=== PATIENT | female | born 1975 | race Caucasian/White ===

== ENCOUNTER → 2017-12-17 | Outpatient (CLI) | payer BC ==
[2017-12-17 10:42] VITALS: BP 163/94; PULSE 69; RESP 15; TEMP 98.3; BMI 46.2
[2017-12-17 11:21] LABS: HCT 36.4 % (34.0-46.0); HGB 11.5 gm/dL (11.4-16.0); Hypochromasia Slight; MCH 25.7 pg (25.0-35.0); MCHC 31.7 g/dL (31.0-37.0); MCV 81.2 fL (80.0-100.0); Mean Platelet Volume 6.7; Platelet Count 268 k/uL (150-450); RBC 4.48 m/uL (3.80-5.40); RDW 15.2 % (11.5-15.5); WBC 5.9 k/uL (3.8-10.6)
[2017-12-17 11:38] LABS: ALT 32 U/L (9-52); AST 15 U/L (14-36); Albumin 3.7 g/dL (3.5-5.0); Alkaline Phosphatase 58 U/L (38-126); Anion Gap 9 mmol/L; Blood Urea Nitrogen 7 mg/dL (7-17); Calcium 8.5 mg/dL (8.4-10.2); Carbon Dioxide 26 mmol/L (22-30); Chloride 104 mmol/L (98-107); Cholesterol 172 mg/dL (<200); Glucose 85 mg/dL (74-99); HDL Cholesterol 47 mg/dL (40-60); LDL Cholesterol,Calculated 94 mg/dL (0-99); Magnesium 1.8 mg/dL (1.6-2.3); Phosphorus 3.3 mg/dL (2.5-4.5); Potassium 3.8 mmol/L (3.5-5.1); Sodium 139 mmol/L (137-145); Total Bilirubin 0.2 mg/dL (0.2-1.3); Total Protein 6.3 g/dL (6.3-8.2); Triglycerides 155 mg/dL (<150)
[2017-12-17 12:09] LABS: Partial Thromboplastin Time 24.1 sec (22.0-30.0); Prothrombin Time 9.8 sec (9.0-12.0)
[2017-12-17 15:53] LABS: Iron Saturation 9.28 (12.00-45.00)
[2017-12-17 16:25] LABS: Folate, Serum 11.8 ng/mL; Parathyroid Hormone Intact 46.9 pg/mL (14.0-72.0)
[2017-12-17 17:32] LABS: Hemoglobin A1C 5.8 % (4.0-6.0)
[2017-12-18 10:56] LABS: Zinc, Serum 67 ug/dL (60-130)
[2017-12-18 16:20] LABS: Vitamin A 26 ug/dL (38-106)
[2017-12-22 08:52] LABS: Vitamin B1 54 ug/L (38-122)
[2017-12-22 15:35] LABS: Selenium 131 mcg/L (63-160)
--- NOTE | 2018-01-16 20:43 | P.HPBAR ---
Bariatric H&P - History & Physicial H&P Date: 12/17/17 History & Physicial: Visit/CC: Patient initial contact: Initial weight: Initial weight in pounds: Height: Initial BMI: Last weight: Current weight: Current weight in pounds: Current BMI: [place] body weight (based on NIH guidelines): Excess body weight loss: The patient is a 42 year-old F who presents for Bariatric Assessment. DATE OF SERVICE: 12/17/2017 REASON FOR CONSULTATION: Initial bariatric evaluation. HISTORY OF PRESENT ILLNESS: Geovanna Gillespie is a 42-year-old female who comes for initial bariatric evaluation. She reports undergoing at least several months of medical supervised weight loss. She has completed both psych including primary care provider risk assessment. As a result of her morbid obesity, she has developed hypertension including lower back pain as well as bilateral hip and bilateral knee pain. She reports the right knee hurts the worst. She also reports bilateral foot pain. Separately, she has obstructive sleep apnea and has CPAP machine. She reports a family history of obesity along her father's side. No reports of inflammatory bowel disease or lupus or multiple sclerosis. She denies stomach or esophageal cancer. No reports of latex ALLERGY. She is looking into the sleeve gastrectomy. She reports underlying dysphagia. Now she presents for further evaluation and management. At her height of 5 foot 1-1/4 inch, her ideal body weight is 131 pounds. Today she comes in weighing 247 pounds. She is 116 pounds overweight. Body mass index is 46.2. PAST MEDICAL HISTORY: 1. Morbid obesity. 2. Body mass index of 46.2. 3. Osteoarthritis of the knees. 4. Osteoarthritis of the hips. 5. Osteoarthritis of the lower back. 6. Obstructive sleep apnea. 7. Hypertensive heart disease. 8. Hypothyroidism. 9. Gestational diabetes PAST SURGICAL HISTORY: 1. Adenoidectomy 2. Tonsillectomy 3. Thyroidectomy 4. 2 HOME MEDICATIONS: 1. Levothyroxine ALLERGIES: Morphine SOCIAL HISTORY: No active tobacco use. Former tobacco use. FAMILY HISTORY: No family history of ulcerative colitis disease or Crohn's disease. Family history of morbid obesity. No lupus in the family. No reports of stomach or esophageal cancer. REVIEW OF ORGAN SYSTEMS: CONSTITUTIONAL: At her height of 5 foot 1-1/4 inch, her ideal body weight is 131 pounds. Today she comes in weighing 247 pounds. She is 116 pounds overweight. Body mass index is 46.2. HEENT: Denies any active troubles with vision or hearing. Has troubles with swallowing. ENDOCRINE: Past diabetes. Has hypothyroidism. CARDIOVASCULAR: No reports of palpitations or heart attacks or chest pain. RESPIRATORY: Has daytime somnolence. No asthma. Has obstructive sleep apnea. GI: Denies any bright red blood per rectum. No diarrhea or constipation. MUSCULOSKELETAL: Has lower back pain and joint pain. Has osteoarthritis of the knees. NEURO: No headaches. No seizure disorders. PSYCH: No depression or suicidal ideation. RHEUMATOLOGIC: No lupus. No rheumatoid arthritis. HEMATOLOGIC: Denies any abnormal bleeding or bruising. No personal history of DVTs. SKIN: No rash. No skin cancer. PHYSICAL EXAM: VITAL SIGNS: Height 5 foot 1.25 inches, weight 247 pounds. BMI 46.2 Vital Signs Temp 98.3 F 12/17/17 09:43 Pulse 69 12/17/17 09:43 Resp 15 12/17/17 09:43 BP 163/94 12/17/17 09:43 Pulse Ox GENERAL: Well-developed in no acute distress. HEENT: No scleral icterus. Extraocular movements grossly intact. Hears conversational speech. No nasal drainage. NECK: Supple without lymphadenopathy. CHEST: Nonlabored respirations with equal bilateral excursions. CARDIOVASCULAR: Regular rate and regular rhythm. Distal 2+ pulses. ABDOMEN: Obese, soft, nontender, nondistended. MUSCULOSKELETAL: No clubbing, cyanosis. Gross strength 5/5 distal lower extremities. Trace bilateral pitting edema. NEURO: No focal or lateralizing signs. Cranial nerves 2 through 12 grossly within normal limits. PSYCH: Appropriate affect. Alert and oriented to person, place and time. SKIN: Good skin turgor. Well perfused. STUDIES: Previous upper endoscopy demonstrates no significant hiatal hernia. No H. pylori gastritis identified. ASSESSMENT: 1. Morbid obesity due to excess calories. 2. Body mass index of 46.2. 3. Osteoarthritis of the knees. 4. Osteoarthritis of the hips. 5. Osteoarthritis of the lower back. 6. Obstructive sleep apnea. 7. Hypertensive heart disease. 8. Hypothyroidism 9. Family history of morbid obesity 10. Gestational diabetes 11. Dysphagia PLAN: 1. Surgical options including a band, gastric bypass, sleeve gastrectomy were described in detail. Alternatives such as gastric balloon including duodenal switch were described. 2. The [place] [facility]ariat[facility] collaborative data and outcomes calculator were described with surgical options. 3. Recommend a bariatric metabolic panel to evaluate for micro- including macronutrient deficiencies. 4. For history of daytime somnolence, recommend evaluation and treatment for sleep apnea. 5. Dietary surveillance and counseling was reviewed, I have asked increased protein intake to at least 80 grams daily. 6. Will need cardiac risk assessment. 7. Recommend medical risk assessment. 8. Psych assessment per insurance guidelines. 9. Recommend manometry for history of esophageal dysphagia 10. Recommend 12-lead EKG with family history of hypertensive heart disease. Thank you for this consultation. Past Medical History Past Medical History: Sleep Apnea/CPAP/BIPAP, Thyroid Disorder Additional Past Medical History / Comment(s): hypothyroidism, bilateral knee and hip pain, History of Any Multi-Drug Resistant Organisms: None Reported Past Surgical History: Adenoidectomy, Tonsillectomy Additional Past Surgical History / Comment(s): thyroidectomy 2013, x2 , borderline hypertension, borderine gestational DM Past Anesthesia/Blood Transfusion Reactions: No Reported Reaction Additional Past Anesthesia/Blood Transfusion Reaction / Comm: NO transfusions to date Smoking Status: Former smoker Past Alcohol Use History: Rare Past Drug Use History: None Reported Additional Drug Use History / Comment(s): Smoked 1/2 pack/day x 18 years. Quit smoking 03-25-13 - Past Family History Father Family Medical History: Cancer, Diabetes Mellitus Additional Family Medical History / Comment(s): at age 75 from lung cancer, Type 2 DM Mother Family Medical History: Dementia, Diabetes Mellitus Additional Family Medical History / Comment(s): type 2 DM, "mental issues when younger" alcoholic Sister(s) Family Medical History: Diabetes Mellitus Additional Family Medical History / Comment(s): Type 2 DM "pretty much resolved " with bariatric surgery Results - Labs 12/17/17 10:56 12/17/17 10:56 Bariatric Checklist Checklist: Plan: Checklist: EGD: 1. Hiatal hernia: 2. H. Pylori: HgbA1c: Vitamin D: Smoking: Former smoker Primary care physician referral: Psychiatry clearance: Cardiology clearance: Sleep study: Diet journal: VTE risk score: VTE risk level: Rehab needs at discharge:
== END | disposition home or self-care (01) ==
LOC: BARWHC3 09:36
PROVIDERS: ATTEND Surgery Plastic and Reconstructive Surgery
DX: E66.01 Morbid (severe) obesity due to excess calories (principal); M17.0 Bilateral primary osteoarthritis of knee; M16.0 Bilateral primary osteoarthritis of hip; M47.816 Spondylosis without myelopathy or radiculopathy, lumbar region; E11.9 Type 2 diabetes mellitus without complications; I11.9 Hypertensive heart disease without heart failure; E03.9 Hypothyroidism, unspecified; G47.33 Obstructive sleep apnea (adult) (pediatric); E21.1 Secondary hyperparathyroidism, not elsewhere classified; E89.1 Postprocedural hypoinsulinemia; D50.9 Iron deficiency anemia, unspecified; E55.9 Vitamin D deficiency, unspecified; K76.9 Liver disease, unspecified; N19 Unspecified kidney failure; K50.90 Crohn's disease, unspecified, without complications; K90.9 Intestinal malabsorption, unspecified; Z79.899 Other long term (current) drug therapy; Z88.5 Allergy status to narcotic agent; Z68.42 Body mass index [BMI] 45.0-49.9, adult; Z87.891 Personal history of nicotine dependence
CPT/HCPCS: 36415; 80053; 80061; 82306; 82525; 82607; 82728; 82746; 83036; 83540; 83550; 83735; 83970; 84100; 84134; 84255; 84425; 84443; 84590; 84630; 85027; 85610; 85730; 93005; 99201

== ENCOUNTER → 2018-01-11 | Outpatient (CLI) | payer BC ==
[2018-01-11 13:14] VITALS: BMI 46.6
== END | disposition home or self-care (01) ==
LOC: BARWHC3 08:31
PROVIDERS: ATTEND Surgery Plastic and Reconstructive Surgery
DX: E66.01 Morbid (severe) obesity due to excess calories (principal); Z71.3 Dietary counseling and surveillance
CPT/HCPCS: 97804

== ENCOUNTER → 2018-01-28 | Outpatient (CLI) | payer BC ==
[2018-01-28 14:00] VITALS: BP 145/85; PULSE 75; TEMP 97.2; BMI 47.5
--- NOTE | 2018-03-05 14:18 | P.PN ---
Subjective Progress Note Date: 01/28/18 DATE OF SERVICE: 01/28/2018 CHIEF COMPLAINT: Bariatric evaluation. HISTORY OF PRESENT ILLNESS: Geovanna Gillespie is a 42-year-old female who presents to the [facility] December 2017. She had reported dysphagia. She is look into the sleeve gastrectomy. As a result of her obesity, she developed osteoarthritis, sleep apnea as well as hypertensive heart disease. Now she presents for further evaluation and management. At her height of 5 foot 1-1/4 inch, her ideal body weight is 131 pounds. Today she comes in weighing 254 pounds. She has gained 7 pounds in 1 month. She is 123 pounds overweight. Body mass index is 47.8. PAST MEDICAL HISTORY: 1. Morbid obesity. 2. Body mass index of 47.8 3. Osteoarthritis of the knees. 4. Osteoarthritis of the hips. 5. Osteoarthritis of the lower back. 6. Obstructive sleep apnea. 7. Hypertensive heart disease. 8. Hypothyroidism. 9. Gestational diabetes PAST SURGICAL HISTORY: 1. Adenoidectomy 2. Tonsillectomy 3. Thyroidectomy 4. 2 HOME MEDICATIONS: 1. Levothyroxine ALLERGIES: Morphine SOCIAL HISTORY: No active tobacco use. Former tobacco use. FAMILY HISTORY: No family history of ulcerative colitis disease or Crohn's disease. Family history of morbid obesity. No lupus in the family. No reports of stomach or esophageal cancer. REVIEW OF ORGAN SYSTEMS: CONSTITUTIONAL: At her height of 5 foot 1-1/4 inch, her ideal body weight is 131 pounds. Today she comes in weighing 254 pounds. She has gained 7 pounds in 1 month. She is 123 pounds overweight. Body mass index is 47.8. HEENT: Denies any active troubles with vision or hearing. Has troubles with swallowing. ENDOCRINE: Past diabetes. Has hypothyroidism. CARDIOVASCULAR: No reports of palpitations or heart attacks or chest pain. RESPIRATORY: Has daytime somnolence. No asthma. Has obstructive sleep apnea. GI: Denies any bright red blood per rectum. No diarrhea or constipation. MUSCULOSKELETAL: Has lower back pain and joint pain. Has osteoarthritis of the knees. NEURO: No headaches. No seizure disorders. PSYCH: No depression or suicidal ideation. RHEUMATOLOGIC: No lupus. No rheumatoid arthritis. HEMATOLOGIC: Denies any abnormal bleeding or bruising. No personal history of DVTs. SKIN: No rash. No skin cancer. PHYSICAL EXAM: VITAL SIGNS: Height 5 foot 1.25 inches, weight 254 pounds. BMI 47.7. Vital Signs Temp 97.2 F L 01/28/18 13:58 Pulse 75 01/28/18 13:58 Resp BP 145/85 01/28/18 13:58 Pulse Ox GENERAL: Well-developed in no acute distress. HEENT: No scleral icterus. Extraocular movements grossly intact. Hears conversational speech. No nasal drainage. NECK: Supple without lymphadenopathy. CHEST: Nonlabored respirations with equal bilateral excursions. CARDIOVASCULAR: Regular rate and regular rhythm. Distal 2+ pulses. ABDOMEN: Obese, soft, nontender, nondistended. MUSCULOSKELETAL: No clubbing, cyanosis. Gross strength 5/5 distal lower extremities. 1+ bilateral pitting edema. NEURO: No focal or lateralizing signs. Cranial nerves 2 through 12 grossly within normal limits. PSYCH: Appropriate affect. Alert and oriented to person, place and time. SKIN: Good skin turgor. Well perfused. LABS: Labs reviewed. Iron is low. Prealbumin is low. Triglycerides elevated. Ferritin low. Vitamin A low. Vitamin D low. TSH suppressed STUDIES: Manometry reviewed demonstrating hypertensive upper esophageal sphincter. Hiatal hernia confirmed with multiple high pressure zones. Lower esophageal sphincter pressure elevated. No esophageal dysmotility identified. EKG: Reviewed normal sinus rhythm. ASSESSMENT: 1. Morbid obesity due to excess calories. 2. Body mass index of 47.8 3. Osteoarthritis of the knees. 4. Osteoarthritis of the hips. 5. Osteoarthritis of the lower back. 6. Obstructive sleep apnea. 7. Hypertensive heart disease. 8. Hypothyroidism 9. Family history of morbid obesity 10. Gestational diabetes 11. Dysphagia 12. Hypertensive lower esophageal sphincter 13. Hypertensive upper esophageal sphincter 14. Iron anemia 15. Inadequate protein intake 16. Hypertriglyceridemia 17. Vitamin D deficiency 18. Vitamin A deficiency 19. Suppressed TSH PLAN: 1. Recommend upper endoscopy for further evaluation 2. She completed a manometry with findings of both upper and lower esophageal sphincter disorder. May benefit from rigid dilation. 3. She has multiple nutritional deficiencies. Recommend correction of iron, vitamin A, and vitamin D. 4. TSH is suppressed. Will need full thyroid panel. 5. Recommend protein intake over 75 g daily. 6. May need alternative procedure than the sleeve gastrectomy with her multiple sphincter disorders of the esophagus. Objective - Vital Signs Vital signs: Vital Signs Temp 97.2 F L 01/28/18 13:58 Pulse 75 01/28/18 13:58 Resp BP 145/85 01/28/18 13:58 Pulse Ox Intake & Output 01/27/18 01/28/18 01/28/18 18:59 06:59 18:59 Weight 115.621 kg
== END | disposition home or self-care (01) ==
LOC: BARWHC3 12:22
PROVIDERS: ATTEND Surgery Plastic and Reconstructive Surgery
DX: E66.01 Morbid (severe) obesity due to excess calories (principal); O24.419 Gestational diabetes mellitus in pregnancy, unspecified control; M17.0 Bilateral primary osteoarthritis of knee; M16.0 Bilateral primary osteoarthritis of hip; M47.9 Spondylosis, unspecified; G47.33 Obstructive sleep apnea (adult) (pediatric); I11.9 Hypertensive heart disease without heart failure; E03.9 Hypothyroidism, unspecified; K22.0 Achalasia of cardia; D50.9 Iron deficiency anemia, unspecified; R63.8 Other symptoms and signs concerning food and fluid intake; E78.1 Pure hyperglyceridemia; E55.9 Vitamin D deficiency, unspecified; E50.9 Vitamin A deficiency, unspecified; R94.6 Abnormal results of thyroid function studies; Z98.890 Other specified postprocedural states; Z83.49 Family history of other endocrine, nutritional and metabolic diseases; Z87.891 Personal history of nicotine dependence; Z68.42 Body mass index [BMI] 45.0-49.9, adult; Z79.899 Other long term (current) drug therapy; Z3A.00 Weeks of gestation of pregnancy not specified
CPT/HCPCS: 99201

== ENCOUNTER → 2018-03-04 | Outpatient (CLI) | payer BC ==
[2018-03-04 11:23] LABS: Anisocytosis Slight; Basophils % (A) 0 %; Eosinophils # (A) 0.1 k/uL (0-0.7); Eosinophils % (A) 2 %; HCT 39.7 % (34.0-46.0); HGB 13.2 gm/dL (11.4-16.0); Lymphocytes # (A) 0.8 k/uL (1.0-4.8); Lymphocytes % (A) 12 %; MCH 28.3 pg (25.0-35.0); MCHC 33.2 g/dL (31.0-37.0); MCV 85.2 fL (80.0-100.0); Mean Platelet Volume 6.6; Monocytes # (A) 0.3 k/uL (0-1.0); Monocytes % (A) 5 %; Neutrophils # (A) 5.2 k/uL (1.3-7.7); Neutrophils % (A) 79 %; Platelet Count 249 k/uL (150-450); RBC 4.66 m/uL (3.80-5.40); RDW 16.3 % (11.5-15.5); WBC 6.6 k/uL (3.8-10.6)
[2018-03-04 11:33] LABS: ALT 33 U/L (9-52); AST 18 U/L (14-36); Albumin 3.9 g/dL (3.5-5.0); Alkaline Phosphatase 40 U/L (38-126); Anion Gap 11 mmol/L; Blood Urea Nitrogen 17 mg/dL (7-17); Calcium 9.3 mg/dL (8.4-10.2); Carbon Dioxide 26 mmol/L (22-30); Chloride 103 mmol/L (98-107); Glucose 81 mg/dL (74-99); Potassium 4.6 mmol/L (3.5-5.1); Sodium 140 mmol/L (137-145); Total Bilirubin 0.3 mg/dL (0.2-1.3); Total Protein 6.3 g/dL (6.3-8.2)
== END | disposition home or self-care (01) ==
LOC: LABPAT 10:43
PROVIDERS: ATTEND Surgery Plastic and Reconstructive Surgery
DX: Z01.812 Encounter for preprocedural laboratory examination (principal)
CPT/HCPCS: 36415; 80053; 85025

== ENCOUNTER 2018-03-08 09:45 | Inpatient (IN) | payer BC ==
--- NOTE | 2018-03-07 15:44 | P.GSHP ---
History of Present Illness H&P Date: 03/08/18 CHIEF COMPLAINT: Morbid obesity HISTORY OF PRESENT ILLNESS: Geovanna Gillespie is a 42-year-old female who presents to the [facility]ariat[facility] December 2017. She is look into the sleeve gastrectomy. As a result of her obesity, she developed osteoarthritis, sleep apnea as well as hypertensive heart disease. Now she presents for further evaluation and management. At her height of 5 foot 1-1/4 inch, her ideal body weight is 131 pounds. Today she comes in weighing 249 pounds. She has lost 5 pounds in 1 month. She is 118 pounds overweight. Body mass index is 47.2. PAST MEDICAL HISTORY: 1. Morbid obesity. 2. Body mass index of 47.8 3. Osteoarthritis of the knees. 4. Osteoarthritis of the hips. 5. Osteoarthritis of the lower back. 6. Obstructive sleep apnea. 7. Hypertensive heart disease. 8. Hypothyroidism. 9. Gestational diabetes PAST SURGICAL HISTORY: 1. Adenoidectomy 2. Tonsillectomy 3. Thyroidectomy 4. 2 HOME MEDICATIONS: 1. Levothyroxine ALLERGIES: Morphine SOCIAL HISTORY: No active tobacco use. Former tobacco use. FAMILY HISTORY: No family history of ulcerative colitis disease or Crohn's disease. Family history of morbid obesity. No lupus in the family. No reports of stomach or esophageal cancer. REVIEW OF ORGAN SYSTEMS: CONSTITUTIONAL: At her height of 5 foot 1-1/4 inch, her ideal body weight is 131 pounds. Today she comes in weighing 254 pounds. She has gained 7 pounds in 1 month. She is 123 pounds overweight. Body mass index is 47.8. HEENT: Denies any active troubles with vision or hearing. Has troubles with swallowing. ENDOCRINE: Past diabetes. Has hypothyroidism. CARDIOVASCULAR: No reports of palpitations or heart attacks or chest pain. RESPIRATORY: Has daytime somnolence. No asthma. Has obstructive sleep apnea. GI: Denies any bright red blood per rectum. No diarrhea or constipation. MUSCULOSKELETAL: Has lower back pain and joint pain. Has osteoarthritis of the knees. NEURO: No headaches. No seizure disorders. PSYCH: No depression or suicidal ideation. RHEUMATOLOGIC: No lupus. No rheumatoid arthritis. HEMATOLOGIC: Denies any abnormal bleeding or bruising. No personal history of DVTs. SKIN: No rash. No skin cancer. PHYSICAL EXAM: VITAL SIGNS: Height 5 foot 1.25 inches, weight 249 pounds. BMI 47.2 GENERAL: Well-developed in no acute distress. HEENT: No scleral icterus. Extraocular movements grossly intact. Hears conversational speech. No nasal drainage. NECK: Supple without lymphadenopathy. CHEST: Nonlabored respirations with equal bilateral excursions. CARDIOVASCULAR: Regular rate and regular rhythm. Distal 2+ pulses. ABDOMEN: Obese, soft, nontender, nondistended. MUSCULOSKELETAL: No clubbing, cyanosis. Gross strength 5/5 distal lower extremities. 1+ bilateral pitting edema. NEURO: No focal or lateralizing signs. Cranial nerves 2 through 12 grossly within normal limits. PSYCH: Appropriate affect. Alert and oriented to person, place and time. SKIN: Good skin turgor. Well perfused. ASSESSMENT: 1. Morbid obesity due to excess calories. 2. Body mass index of 47.8 3. Osteoarthritis of the knees. 4. Osteoarthritis of the hips. 5. Osteoarthritis of the lower back. 6. Obstructive sleep apnea. 7. Hypertensive heart disease. 8. Hypothyroidism 9. Family history of morbid obesity 10. Gestational diabetes 11. Dysphagia 12. Hypertensive lower esophageal sphincter 13. Hypertensive upper esophageal sphincter 14. Iron anemia 15. Inadequate protein intake 16. Hypertriglyceridemia 17. Vitamin D deficiency 18. Vitamin A deficiency 19. Suppressed TSH PLAN: 1. Bariatric options between a sleeve, band and a [place]-en-Y gastric bypass were reviewed in detail. She elected for a sleeve gastrectomy. Robotic assisted approach described. 2. The [place] [facility] Data was also reviewed with benefits and risks as described. 3. An 8 page second-generation bariatric consent form was reviewed in detail including potential of bleeding, infection, leaks, adequate weight loss, nutritional deficiencies which he demonstrated understanding of the risks. 4. A 2 week high-protein low caloric 800 kcal diet described to address hepatomegaly. 5. Preoperative labs including complete metabolic panel and CBC with type and screen recommended. 6. DVT prophylaxis per [place] [facility] collaborative. 7. Antibiotic prophylaxis. 8. Inpatient hospitalization anticipated for more than 2 nights. 9. All questions and concerns were addressed with the patient. 10. Recommended dietary classes. Past Medical History Past Medical History: Sleep Apnea/CPAP/BIPAP, Thyroid Disorder Additional Past Medical History / Comment(s): hypothyroidism, bilateral knee and hip pain, History of Any Multi-Drug Resistant Organisms: None Reported Past Surgical History: Adenoidectomy, Tonsillectomy Additional Past Surgical History / Comment(s): thyroidectomy 2013, x2 , borderline hypertension, borderine gestational DM Past Anesthesia/Blood Transfusion Reactions: No Reported Reaction Additional Past Anesthesia/Blood Transfusion Reaction / Comment(s): NO transfusions to date Smoking Status: Former smoker - Past Family History Father Family Medical History: Cancer, Diabetes Mellitus Additional Family Medical History / Comment(s): at age 75 from lung cancer, Type 2 DM Mother Family Medical History: Dementia, Diabetes Mellitus Additional Family Medical History / Comment(s): type 2 DM, "mental issues when younger" alcoholic Sister(s) Family Medical History: Diabetes Mellitus Additional Family Medical History / Comment(s): Type 2 DM "pretty much resolved " with bariatric surgery Brother(s) Family Medical History: Deep Vein Thrombosis (DVT) Additional Family Medical History / Comment(s): 1/2 BROTHER Medications and Allergies Home Medications Medication Instructions Recorded Confirmed Type Levothyroxine Sodium [Synthroid] 200 mcg PO DAILY 01/11/18 02/25/18 History Multivitamin [Multivitamins Adult 1 tab PO DAILY 01/28/18 02/25/18 History Gummies] Allergies Allergy/AdvReac Type Severity Reaction Status Date / Time morphine AdvReac Nausea & Verified 02/25/18 15:54 Vomiting
[~2018-03-08 09:45] MED LIST: ACETAMINOPHEN IV (For NPO) 1,000 MG in EMPTY BAG 1 BAG IVPB ONE; CHLORHEXIDINE GLUCONATE 15 ML CUP MUCOUS MEM ONE; DEXAMETHASONE SOD PHOSPHATE 10 MG/ML 1 ML VIAL IV ONE; ENOXAPARIN 40 MG/0.4 ML SYRINGE SQ STA; ONDANSETRON ODT 4 MG TAB PO ONE; ceFAZolin IN SWFI 2 GM/20 ML SYRINGE IVP ONE
[2018-03-08] MEDS: LACTATED RINGERS 1,000 ML IV SCH (12:46)
[2018-03-08] MEDS: SCOPOLAMINE 1.5MG/72HR PATCH TRANSDERM STA ×2 (12:55→20:39)
[2018-03-08] MEDS: PANTOPRAZOLE 40 MG/10 ML VIAL IV STA ×2 (12:55→20:39)
[2018-03-08] MEDS ORDERED: ONDANSETRON 4 MG/2 ML VIAL IVP ONE (13:20)
[2018-03-08] MEDS ORDERED: SUCCINYLCHOLINE CHLORIDE VIAL 200 MG/10 ML VIAL IV ONE (15:42)
[2018-03-08] MEDS ORDERED: NEOSTIGMINE 1 MG/ML 10 ML VIAL ONE (15:42)
[2018-03-08] MEDS ORDERED: GLYCOPYRROLATE 0.2 MG/ML 2 ML VIAL ONE (15:42)
[2018-03-08] MEDS ORDERED: PROPOFOL 10 MG/ML 20 ML VIAL IV ONE (15:42)
[2018-03-08] MEDS ORDERED: MIDAZOLAM 2 MG/2 ML VIAL ONE (15:42)
[2018-03-08] MEDS ORDERED: fentaNYL (PF) 50 MCG/ML 2 ML AMP ONE (15:42)
[2018-03-08] MEDS ORDERED: LIDOCAINE 1% INJ 10MG/ML (20 ML MDV) ONE (15:42)
[2018-03-08] MEDS ORDERED: VECURONIUM 10 MG VIAL IV ONE (15:42)
[2018-03-08] MEDS ORDERED: BUPIVACAINE (PF) 0.25% 30 ML VIAL SQ ONE (16:07)
[2018-03-08] MEDS ORDERED: LACTATED RINGERS 1,000 ML IV ONE (17:56)
--- NOTE | 2018-03-08 18:13 | P.HPADDEND ---
H&P Addendum H&P Addendum Date: 03/08/18 Benefits and risks of sleeve gastrectomy reviewed. We'll proceed with sleeve gastrectomy.
[2018-03-08] MEDS ORDERED: ACETAMINOPHEN IV (For NPO) 1,000 MG in EMPTY BAG 1 BAG IVPB ONE (18:20)
[2018-03-08] MEDS ORDERED: diphenhydrAMINE 50 MG/ML 1 ML VIAL IVP PRN (18:20)
[2018-03-08] MEDS ORDERED: NALOXONE 0.4 MG/ML 1 ML VIAL IV PRN (18:20)
[2018-03-08] MEDS ORDERED: HYDROcodone/APAP 15 ML SOLUTION PO PRN (18:20)
[2018-03-08] MEDS ORDERED: MORPHINE SULFATE 4 MG/ML SYRINGE IVP PRN (18:20)
--- NOTE | 2018-03-08 18:20 | P.OP ---
Date of Procedure: 03/08/18 Description of Procedure: SURGEON: RIYA NYE MD HYDRO GENERATION SUPERVISOR: 1. GRACE TYLER PREOPERATIVE DIAGNOSES: 1. Morbid obesity due to excess calories. 2. Body mass index of 47.8 3. Osteoarthritis of the knees. 4. Osteoarthritis of the hips. 5. Osteoarthritis of the lower back. 6. Obstructive sleep apnea. 7. Hypertensive heart disease. 8. Hypothyroidism 9. Family history of morbid obesity 10. Gestational diabetes 11. Dysphagia 12. Hypertensive lower esophageal sphincter 13. Hypertensive upper esophageal sphincter 14. Iron anemia 15. Inadequate protein intake 16. Hypertriglyceridemia 17. Vitamin D deficiency 18. Vitamin A deficiency 19. Suppressed TSH POSTOPERATIVE DIAGNOSES: 1. Morbid obesity due to excess calories. 2. Body mass index of 47.8 3. Osteoarthritis of the knees. 4. Osteoarthritis of the hips. 5. Osteoarthritis of the lower back. 6. Obstructive sleep apnea. 7. Hypertensive heart disease. 8. Hypothyroidism 9. Family history of morbid obesity 10. Gestational diabetes 11. Dysphagia 12. Hypertensive lower esophageal sphincter 13. Hypertensive upper esophageal sphincter 14. Iron anemia 15. Inadequate protein intake 16. Hypertriglyceridemia 17. Vitamin D deficiency 18. Vitamin A deficiency 19. Suppressed TSH 20. Hepatomegaly 21. Chronic cholecystitis OPERATION: 1. Robotic assisted daVinci Xi laparoscopic sleeve gastrectomy with 40-Monegasque bougie, multiport. 2. Intraoperative esophagogastroduodenoscopy. ANESTHESIA: Gen. local anesthetic ESTIMATED BLOOD LOSS: 5 mL SPECIMENS REMOVED: Sleeve gastrectomy COMPLICATIONS: None. INDICATIONS: Geovanna Gillespie is a 42-year-old female who presents to [facility] December 2017. She is look into the sleeve gastrectomy. As a result of her obesity, she developed osteoarthritis, sleep apnea as well as hypertensive heart disease. Now she presents for further evaluation and management. At her height of 5 foot 1-1/4 inch, her ideal body weight is 131 pounds. Today she comes in weighing 249 pounds. She has lost 5 pounds in 1 month. She is 118 pounds overweight. Body mass index is 47.2, initial. All surgical options for morbid obesity had been described using the [place] bariatric surgery collaborative comorbidity resolution including complication risk score. A second-generation bariatric consent form was described in detail including the possibility of protein malnutrition, leaks, gastric stricture, venous thrombosis, gastroesophageal reflux disease, need for further surgery for which she demonstrated understanding. Benefits and risks of the procedure were described at length. Informed consent was obtained. DESCRIPTION: The patient was brought into the operating room theater. Preoperatively she had received Lovenox subcutaneously for DVT prophylaxis. Additionally she had Peridex oral solution as an oral decontaminant. After general induction, the abdomen was prepped and draped in standard sterile fashion. An Ioban draping was placed along the abdomen. Mitchell catheter was avoided. A robotic da Jessa Xi system was prepped and primed. The xiphoid to umbilicus measured 20 cm. At 15 cm from the xiphoid, proposed port sites were marked with indelible marker along the anterior axillary line bilaterally, mid axillary line bilaterally with each ports were marked 10 to 15 cm from each other. The political science research assistant port was marked along the left lateral abdominal wall. The robotic stapler port was marked for the right midclavicular line. A 5 mm 0 degrees laparoscopic trocar entry was performed along the left upper quadrant. The abdomen was insufflated to 15 mmHg pressure she tolerated well. Diagnostic laparoscopy demonstrated no injury to bowel, viscera, or mesentery. The liver surface was unremarkable. The liver was large consistent with hepatomegaly. The gallbladder wall was thickened consistent with chronic cholecystitis. No injury had occurred to the small bowel or viscera. Along the hiatus no evidence of large prominent hiatal hernia was encountered as she had a previous repair. A 8 mm port was placed along the right upper abdominal wall after exchanging the 5 mm port. A separate 8 mm port was placed along the left lateral abdominal wall. Please note that the ports were placed at least 20 cm away from the target anatomy. Care was taken to check each robotic arms were safely away from collision with the bed or the patient. At the epigastrium, a median sized Tao liver retractor was placed under direct visualization with the Iron Band Builder placed under the right shoulder of the patient. Next, 12-mm robot stapler port was placed along the right upper quadrant. The camera 8-mm port was maintained along the epigastrium, The patient was repositioned in reverse Trendelenburg position at 14-degrees after lowering the bed. The robot was docked along the left side of the patient. Using a grasper for arm 4, a veseel sealer for arm 3, including grasper for arm 1, the robotic system was docked and primed as described. Instruments were interchanged by the political science research assistant for stapler loads. The camera was placed at 30-degrees down. I had sat at the console. The pylorus was identified and 6 cm proximally along the greater curvature of the stomach, the short gastrics were mobilized upwards to the angle of His using a vessel sealer. Hemostasis was excellent during this portion of the procedure. Next, the upper pole of the stomach was adherent to the left berta, which was gently dissected free using atraumatic grasper. Moderate redundancy of the posterior upper pole of the stomach was identified. The nursing billing adjudicator placed a 40-Monegasque blunted bougie into the stomach. Robotic stapler green loads 45 mm x 9 were used to create the sleeve. Initial firing was across the antrum of the stomach towards the angle of His. The staple line was completely hemostatic and linear without corkscrewing. Hemostasis was excellent. The space from the angularis incisura of the sleeve was approximately 4 cm. I then went to the head of the bed to perform the intraoperative esophagogastroduodenoscopy leak test. The upper pole of the stomach was bathed using normal saline solution. The scope was withdrawn with careful inspection along the staple line for which no leaks were found along the entire length. Additionally, the sleeve was completely hemostatic without any encroachment along the angularis incisura. Its topology was a soft "J". No stricture was encountered upon placement of the scope. The GI tract was desufflated. The patient tolerated this portion of the procedure well. The scope was completely withdrawn. The robot was undocked. I then rescrubbed into case, whereby the irrigation fluid was aspirated from the abdominal cavity. Tisseel fibrin sealant was placed along the entire staple length. Once dried the Tao liver retractor was removed. Attention was now brought to removal of the specimen. The distal end of the sleeve gastrectomy specimen was brought out through the 12 mm port at the left upper quadrant. The specimen was gently removed en total , corresponding to 21 cm x 6 cm sleeve gastrectomy specimen. No contamination had occurred during this process. All instruments and pneumoperitoneum including irrigation fluid was removed from the abdominal cavity. The 12 mm port site was irrigated with warm normal saline solution and diluted hydron peroxide. The 12-mm port site was reapproximated using 0 Vicryl and Wojciech-Parvin of the left upper quadrant. The final incisions were closed using subcuticular interrupted suture of 4-0 Monocryl. Dermabond was applied to the skin once the skin had been cleansed. OptiFoam dressing was placed along the stomach extraction site. At the end of the procedure, needle, sponge, and instrument count was verified correct by the alternative energy technician. The patient was taken to the postanesthesia care unit in stable condition. She had tolerated the procedure well. Intraoperative films and findings were reviewed with the patient's family. FINDINGS: 1. Negative intraoperative esophagogastrojejunoscopy leak test. 2. Hepatomegaly present. No large hiatus hernia. 3. Total of 9 staplers used including 45 mm green robot kiera loads used to create the gastric sleeve. 4. Xiphoid to umbilicus of 20 cm. 5. Moderate redundant upper posterior pole of the stomach. 6. Sleeve gastrectomy 21 x 6 cm 7. Chronic cholecystitis.
[2018-03-08] MEDS: fentaNYL (PF) 50 MCG/ML 2 ML AMP IV PRN ×2 (18:47→18:53)
[2018-03-08] MEDS: 0.9% NACL WITH KCL 20 MEQ/L 1,000 ML IV SCH ×2 (21:00→21:34)
[2018-03-08] MEDS: ALBUTEROL NEBULIZED 2.5 MG/3 ML INHALATION SCH (21:30)
[2018-03-08] MEDS: HYOSCYAMINE ORAL DROPS 1.875 MG/15 ML BOTTLE PO SCH (21:54)
[2018-03-08] MEDS: SIMETHICONE 40 MG/0.6 ML DROPS 2,000 MG/30 ML BOTTLE PO SCH (21:54)
[2018-03-08] MEDS: DEXAMETHASONE SOD PHOSPHATE 4 MG/ML 1 ML VIAL IV SCH (23:26)
[2018-03-08] MEDS: AMPICILLIN-SULBACTAM 3 GM in SODIUM CHLORIDE 0.9% 100 ML IVPB SCH (23:26)
[2018-03-08] MEDS: ONDANSETRON 4 MG/2 ML VIAL IVP PRN (23:34)
[2018-03-09] MEDS: SIMETHICONE 40 MG/0.6 ML DROPS 2,000 MG/30 ML BOTTLE PO SCH ×2 (05:08→11:13)
[2018-03-09] MEDS: DEXAMETHASONE SOD PHOSPHATE 4 MG/ML 1 ML VIAL IV SCH ×2 (05:08→11:12)
[2018-03-09] MEDS: AMPICILLIN-SULBACTAM 3 GM in SODIUM CHLORIDE 0.9% 100 ML IVPB SCH (05:08)
[2018-03-09] MEDS: HYOSCYAMINE ORAL DROPS 1.875 MG/15 ML BOTTLE PO SCH ×2 (05:08→11:12)
[2018-03-09] MEDS: ALBUTEROL NEBULIZED 2.5 MG/3 ML INHALATION SCH ×3 (07:47→15:42)
[2018-03-09] MEDS: 0.9% NACL WITH KCL 20 MEQ/L 1,000 ML IV SCH (07:50)
[2018-03-09] MEDS ORDERED: 1: MVI, ADULT NO.4 WITH VIT K 10 ML, THIAMINE 100 MG, FOLIC ACID 1 MG, POTASSIUM CHLORID IV SCH ×6 (08:00)
[2018-03-09 08:04] VITALS: RESP 16
--- NOTE | 2018-03-09 08:28 | P.PN ---
Subjective Progress Note Date: 03/09/18 The patient is a 42-year-old female status post sleeve gastrectomy. She had no reports no nausea. Pain is controlled. She feels great. Objective - Vital Signs Vital signs: Vital Signs Temp 97.4 F L 03/09/18 08:03 Pulse 89 03/09/18 08:03 Resp 16 03/09/18 08:03 BP 141/80 03/09/18 08:03 Pulse Ox 96 03/09/18 08:03 Intake & Output 03/08/18 03/09/18 03/09/18 18:59 06:59 18:59 Intake Total 1900 2500 Output Total 10 Balance 1890 2500 Weight 108.5 kg Intake: IV 1900 100 Intake, IV Titration 2400 Amount 0.9% NaCl with KCl 20 Meq 2400 /l 1,000 ml @ 150 mls/hr IV .Q6H40M IRAIS Rx#: [id number] Output: Estimated Blood Loss 10 Other: Voiding Method Toilet # Voids 3 - Exam GENERAL: Well developed and in no acute distress. Pleasant. HEENT: No sclera icterus. Extraocular movements grossly intact. Moist buccal mucosa. Head is atraumatic, normocephalic. Hears conversational speech. No nasal drainage. NECK: Supple without lymphadenopathy. No JV distention. CHEST: Non-labored respirations and equal bilateral excursions. CARDIOVASCULAR: Regular rate and rhythm. Palpable 2+ radial pulses. ABDOMEN: Soft, no peritonitis, no signs of infection. Incisions well approximated. Dressing left upper quadrant intact. MUSCULOSKELETAL: No clubbing, cyanosis or edema. NEUROLOGIC: No focal or lateralizing signs. PSYCH: Appropriate affect. Alert and oriented to person, place and time. - Labs CBC & Chem 7: 03/09/18 07:25 03/09/18 07:25 Assessment and Plan (1) Morbid obesity due to excess calories Status: Acute Code(s): E66.01 - MORBID (SEVERE) OBESITY DUE TO EXCESS CALORIES SNOMED Code(s): 487189591 (2) BMI 45.0-49.9, adult Status: Acute Code(s): Z68.42 - BODY MASS INDEX (BMI) 45.0-49.9, ADULT SNOMED Code(s): 110470769 (3) Hypertension Status: Acute Code(s): I10 - ESSENTIAL (PRIMARY) HYPERTENSION SNOMED Code(s) : 21765137 (4) Sleep apnea Status: Acute Code(s): G47.30 - SLEEP APNEA, UNSPECIFIED SNOMED Code(s): 53821403 Plan: 1. Proceed with UGI and diet. 2. Discharge this afternoon. 3. Follow-up in bariatric center in 48 hrs.
[2018-03-09 08:37] LABS: Anisocytosis Slight; Basophils % (A) 0 %; Eosinophils % (A) 0 %; HCT 38.5 % (34.0-46.0); HGB 12.9 gm/dL (11.4-16.0); Lymphocytes # (A) 0.4 k/uL (1.0-4.8); Lymphocytes % (A) 4 %; MCH 28.2 pg (25.0-35.0); MCHC 33.6 g/dL (31.0-37.0); MCV 83.9 fL (80.0-100.0); Mean Platelet Volume 7.3; Monocytes # (A) 0.3 k/uL (0-1.0); Monocytes % (A) 3 %; Neutrophils # (A) 10.9 k/uL (1.3-7.7); Neutrophils % (A) 93 %; Platelet Count 258 k/uL (150-450); RBC 4.59 m/uL (3.80-5.40); RDW 16.4 % (11.5-15.5); WBC 11.7 k/uL (3.8-10.6)
[2018-03-09 08:51] LABS: Anion Gap 10 mmol/L; Blood Urea Nitrogen 10 mg/dL (7-17); Calcium 8.5 mg/dL (8.4-10.2); Carbon Dioxide 23 mmol/L (22-30); Chloride 107 mmol/L (98-107); Phosphorus 2.9 mg/dL (2.5-4.5); Potassium 4.4 mmol/L (3.5-5.1); Sodium 140 mmol/L (137-145)
[2018-03-09] MEDS ORDERED: PANTOPRAZOLE 40 MG/10 ML VIAL IV SCH (09:00)
[2018-03-09] MEDS ORDERED: ENOXAPARIN 40 MG/0.4 ML SYRINGE SQ SCH (09:00)
--- NOTE | 2018-03-09 09:03 | FL ---
SINGLE CONTRAST UPPER GI EXAMINATION: CLINICAL HISTORY: 42-year-old female. Sleeve gastrectomy, bariatric surgery. TECHNIQUE: Single contrast exam performed with 35 ml Omnipaque 350 contrast. Fluoroscopy time: 35 seconds. Total images: 19. FINDINGS: The patient swallowed oral contrast without difficulty or delay. Esophageal peristalsis and motility are within normal limits. After initial delay in passage of contrast across the GE junction, there i s adequate passage with postsurgical changes noted of sleeve gastrectomy. After a second delay, there is eventual opacification of the duodenum. There is no evidence of contrast extravasation to suggest leak. Trace postsurgical free air on the right. IMPRESSION: No evidence of leak status post sleeve gastrectomy. Very mild postoperative delay in the passage of c ontrast. No significant obstruction. Tracer postsurgical free air on the right.
--- NOTE | 2018-03-09 12:31 | P.DS ---
Providers Date of admission: 03/08/18 10:35 Expected date of discharge: 03/09/18 Attending physician: Ebony Garcia Primary care physician: Mai العلي - Discharge Diagnosis(es) (1) Morbid obesity Status: Acute Hospital Course: POSTOPERATIVE DIAGNOSES: 1. Morbid obesity due to excess calories. 2. Body mass index of 47.8 3. Osteoarthritis of the knees. 4. Osteoarthritis of the hips. 5. Osteoarthritis of the lower back. 6. Obstructive sleep apnea. 7. Hypertensive heart disease. 8. Hypothyroidism 9. Family history of morbid obesity 10. Gestational diabetes 11. Dysphagia 12. Hypertensive lower esophageal sphincter 13. Hypertensive upper esophageal sphincter 14. Iron anemia 15. Inadequate protein intake 16. Hypertriglyceridemia 17. Vitamin D deficiency 18. Vitamin A deficiency 19. Suppressed TSH 20. Hepatomegaly 21. Chronic cholecystitis COURSE: Geovanna Gillespie is a 42-year-old female who presents to the [facility] December 2017. She is look into the sleeve gastrectomy. As a result of her obesity, she developed osteoarthritis, sleep apnea as well as hypertensive heart disease. Now she presents for further evaluation and management. At her height of 5 foot 1-1/4 inch, her ideal body weight is 131 pounds. Today she comes in weighing 249 pounds. She has lost 5 pounds in 1 month. She is 118 pounds overweight. Body mass index is 47.2, initial. All surgical options for morbid obesity had been described using the [place] bariatric surgery collaborative comorbidity resolution including complication risk score. A second-generation bariatric consent form was described in detail including the possibility of protein malnutrition, leaks, gastric stricture, venous thrombosis , gastroesophageal reflux disease, need for further surgery for which she demonstrated understanding. Benefits and risks of the procedure were described at length. Informed consent was obtained. Postprocedure, she was tolerating diet. Pain was well-controlled. No reports of nausea or vomiting. Discharge instructions were reviewed. Patient will follow-up at the bariatric center in 48 hours. Pertinent Studies: Esophagram no signs of leak or obstruction Procedures: OPERATION: 1. Robotic assisted daVinci Xi laparoscopic sleeve gastrectomy with 40-North Korean bougie, multiport. 2. Intraoperative esophagogastroduodenoscopy. Patient Condition at Discharge: Good Plan - Discharge Summary Discharge Rx Participant: Yes New Discharge Prescriptions: New Bisacodyl [Dulcolax] 5 mg PO DAILY PRN #10 tablet. PRN Reason: Constipation HYDROcodone/APAP [[place] Elixir 7.5-325Mg/15Ml] 15 ml PO Q6H PRN #300 solution PRN Reason: Pain Omeprazole 40 mg PO DAILY #90 capsule. Ondansetron Odt [Zofran Odt] 4 mg PO Q8HR PRN #9 tab PRN Reason: Nausea Simethicone 40 mg/0.6 ml Drops [Mylicon Drops] 40 mg PO PCHS PRN #30 ml PRN Reason: Gas Continue Levothyroxine Sodium [Synthroid] 200 mcg PO DAILY Multivitamin [Multivitamins Adult Gummies] 1 tab PO DAILY Discharge Medication List Levothyroxine Sodium [Synthroid] 200 mcg PO DAILY 01/11/18 [History] Multivitamin [Multivitamins Adult Gummies] 1 tab PO DAILY 01/28/18 [History] Bisacodyl [Dulcolax] 5 mg PO DAILY PRN #10 tablet. 03/09/18 [Rx] HYDROcodone/APAP [[place] Elixir 7.5-325Mg/15Ml] 15 ml PO Q6H PRN #300 solution [Rx] Omeprazole 40 mg PO DAILY #90 capsule. 03/09/18 [Rx] Ondansetron Odt [Zofran Odt] 4 mg PO Q8HR PRN #9 tab 03/09/18 [Rx] Simethicone 40 mg/0.6 ml Drops [Mylicon Drops] 40 mg PO PCHS PRN #30 ml [Rx] Follow up Appointment(s)/Referral(s): [facility]ariatric Center,. [NON-STAFF] - 03/12/18 9:00 am Patient Instructions/Handouts: *Surgery [facility] - Scopalamine Patch Instructions, Nutrition after Bariatric Surgery (DC), Bowel Management After Bariatric Surgery (DC), Laparoscopic Sleeve Gastrectomy (DC) Activity/Diet/Wound Care/Special Instructions: No lifting over 4 pounds in 4 weeks. May shower. No bathtub soaks. Liquid diet only. Discharge Disposition: HOME SELF-CARE
[2018-03-09 13:21] VITALS: BMI 45.1
[2018-03-09] MEDS: ONDANSETRON 4 MG/2 ML VIAL IVP PRN (14:50)
[2018-03-09 15:04] VITALS: BP 136/76; PULSE 84; TEMP 98
== END 2018-03-09 15:33 | disposition home or self-care (01) | DRG 621 ==
LOC: 2ORMAIN 10:35 → 3SUR 19:52
PROVIDERS: ADMIT Surgery Plastic and Reconstructive Surgery; ATTEND Surgery Plastic and Reconstructive Surgery
PROC: 0DJ08ZZ Inspection of Upper Intestinal Tract, Via Natural or Artificial Opening Endoscopic (ICD-10-PCS; 2018-03-08)
PROC: 8E0W4CZ Robotic Assisted Procedure of Trunk Region, Percutaneous Endoscopic Approach (ICD-10-PCS; 2018-03-08)
PROC: 0DB64Z3 Excision of Stomach, Percutaneous Endoscopic Approach, Vertical (ICD-10-PCS; principal; 2018-03-08 13:15)
DX: E66.01 Morbid (severe) obesity due to excess calories (principal); K22.0 Achalasia of cardia; I11.9 Hypertensive heart disease without heart failure; G47.33 Obstructive sleep apnea (adult) (pediatric); M16.0 Bilateral primary osteoarthritis of hip; M17.0 Bilateral primary osteoarthritis of knee; E78.1 Pure hyperglyceridemia; E55.9 Vitamin D deficiency, unspecified; E50.9 Vitamin A deficiency, unspecified; D50.9 Iron deficiency anemia, unspecified; R16.0 Hepatomegaly, not elsewhere classified; K81.1 Chronic cholecystitis; E89.0 Postprocedural hypothyroidism; M47.819 Spondylosis without myelopathy or radiculopathy, site unspecified; Z71.3 Dietary counseling and surveillance; Z68.42 Body mass index [BMI] 45.0-49.9, adult; Z79.890 Hormone replacement therapy; Z79.899 Other long term (current) drug therapy; Z87.891 Personal history of nicotine dependence; Z86.32 Personal history of gestational diabetes; Z83.3 Family history of diabetes mellitus; Z80.1 Family history of malignant neoplasm of trachea, bronchus and lung; Z83.49 Family history of other endocrine, nutritional and metabolic diseases; Z83.2 Family history of diseases of the blood and blood-forming organs and certain disorders involving the immune mechanism
CPT/HCPCS: 74240; 80051; 81025; 82310; 82565; 83735; 84100; 84520; 85025; 86850; 86900; 86901; 88307; 94640; 94760

== ENCOUNTER → 2018-03-12 | Outpatient (CLI) | payer BC ==
[~2018-03-12] MED LIST changes: -ACETAMINOPHEN IV (For NPO) 1,000 MG in EMPTY BAG 1 BAG IVPB ONE; -CHLORHEXIDINE GLUCONATE 15 ML CUP MUCOUS MEM ONE; +DEXAMETHASONE SOD PHOSPHATE 10 MG/ML 1 ML VIAL IM STA; -DEXAMETHASONE SOD PHOSPHATE 10 MG/ML 1 ML VIAL IV ONE; -ENOXAPARIN 40 MG/0.4 ML SYRINGE SQ STA; -ONDANSETRON ODT 4 MG TAB PO ONE; -ceFAZolin IN SWFI 2 GM/20 ML SYRINGE IVP ONE
--- NOTE | 2018-03-12 09:47 | P.PN ---
Subjective Progress Note Date: 03/12/18 CHIEF COMPLAINT: Status post gastric bypass HISTORY OF PRESENT ILLNESS: Geovanna Gillespie is a 42-year-old female who presented to the Bariatric Ctr[facility] December 2017. She had the sleeve gastrectomy , 03/08/2018. She is POD #4. At her height of 5 foot 1-1/4 inch, her ideal body weight is 131 pounds. Today she comes in weighing 243 pounds. She has lost 12 pounds in 2 months and lifetime. She is 112 pounds overweight. Body mass index is reduced from 47.8 to 45.6. Today she comes in with a rash along the abdomen yesterday at the breast with burning. She had cut back on her pain medications. She is passing flatus and had a bowel movement. No nausea or vomiting. No fevers or chills. Complains of ankle swelling. PHYSICAL EXAM: VITAL SIGNS: Height 5 foot 1.25 inches, weight 243 pounds. BMI 45.6 GENERAL: Well-developed in no acute distress. HEENT: No scleral icterus. Extraocular movements grossly intact. Hears conversational speech. No nasal drainage. NECK: Supple without lymphadenopathy. CHEST: Nonlabored respirations with equal bilateral excursions. CARDIOVASCULAR: Regular rate and regular rhythm. Distal 2+ pulses. ABDOMEN: Obese, soft, nondistended. No infections. Dressings removed. MUSCULOSKELETAL: No clubbing, cyanosis. Gross strength 5/5 distal lower extremities. 1+ bilateral pitting edema. NEURO: No focal or lateralizing signs. Cranial nerves 2 through 12 grossly within normal limits. PSYCH: Appropriate affect. Alert and oriented to person, place and time. SKIN: Good skin turgor. Well perfused. Diffuse macular papular rash. ASSESSMENT: 1. Morbid obesity due to excess calories. 2. Body mass index of 47.8 to 45.6. 3. Osteoarthritis of the knees. 4. Osteoarthritis of the hips. 5. Osteoarthritis of the lower back. 6. Obstructive sleep apnea. 7. Hypertensive heart disease. 8. Status post sleeve gasterctomy. 9. Rash. PLAN: 1. Benadryl liquid for itching and topical benadryl. 2. May start stage 2 protein shakes. 3. Can add steroid cream. 4. Follow up next week.
[2018-03-12 09:56] VITALS: BMI 45.3
== END | disposition home or self-care (01) ==
LOC: BARWHC3 09:29
PROVIDERS: ATTEND Surgery Plastic and Reconstructive Surgery
DX: Z09 Encounter for follow-up examination after completed treatment for conditions other than malignant neoplasm (principal); E66.01 Morbid (severe) obesity due to excess calories; M17.0 Bilateral primary osteoarthritis of knee; M16.0 Bilateral primary osteoarthritis of hip; M47.9 Spondylosis, unspecified; G47.33 Obstructive sleep apnea (adult) (pediatric); I11.9 Hypertensive heart disease without heart failure; E03.9 Hypothyroidism, unspecified; O24.419 Gestational diabetes mellitus in pregnancy, unspecified control; R13.10 Dysphagia, unspecified; D50.9 Iron deficiency anemia, unspecified; R63.8 Other symptoms and signs concerning food and fluid intake; E78.1 Pure hyperglyceridemia; E55.9 Vitamin D deficiency, unspecified; E50.9 Vitamin A deficiency, unspecified; R21 Rash and other nonspecific skin eruption; R94.6 Abnormal results of thyroid function studies; Z98.84 Bariatric surgery status; Z83.49 Family history of other endocrine, nutritional and metabolic diseases; Z3A.00 Weeks of gestation of pregnancy not specified; Z68.42 Body mass index [BMI] 45.0-49.9, adult; Z79.899 Other long term (current) drug therapy; Z88.5 Allergy status to narcotic agent; Z87.891 Personal history of nicotine dependence
CPT/HCPCS: 99211

== ENCOUNTER → 2018-03-17 | Outpatient (CLI) | payer BC ==
[2018-03-17 16:58] VITALS: BP 131/82; PULSE 72; TEMP 97.9; BMI 43.4
--- NOTE | 2018-03-17 17:59 | P.PN ---
Subjective Progress Note Date: 03/17/18 DATE: 03/17/2018 CHIEF COMPLAINT: Status post gastric bypass HISTORY OF PRESENT ILLNESS: Geovanna Gillespie is a 42-year-old female who presented to the Bariat[facility]tr[facility] December 2017. She had the sleeve gastrectomy , 03/08/2018. She is POD #4. At her height of 5 foot 1-1/4 inch, her ideal body weight is 131 pounds. Today she comes in weighing 243 pounds. She has lost 12 pounds in 2 months and lifetime. She is 112 pounds overweight. Body mass index is reduced from 47.8 to 45.6. Today she comes in with a rash along the abdomen yesterday at the breast with burning. She had cut back on her pain medications. She is passing flatus and had a bowel movement. No nausea or vomiting. No fevers or chills. Complains of ankle swelling. She was last 03/12/18. She has a rash that has improved since her Decadron shot. No abdominal pain or nausea. Today she comes in 233 pounds. PHYSICAL EXAM: VITAL SIGNS: Height 5 foot 1.25 inches, weight 233 pounds. BMI 43.5 GENERAL: Well-developed in no acute distress. HEENT: No scleral icterus. Extraocular movements grossly intact. Hears conversational speech. No nasal drainage. NECK: Supple without lymphadenopathy. CHEST: Nonlabored respirations with equal bilateral excursions. CARDIOVASCULAR: Regular rate and regular rhythm. Distal 2+ pulses. ABDOMEN: Obese, soft, nondistended. No infections. Dressings removed. MUSCULOSKELETAL: No clubbing, cyanosis. Gross strength 5/5 distal lower extremities. 1+ bilateral pitting edema. NEURO: No focal or lateralizing signs. Cranial nerves 2 through 12 grossly within normal limits. PSYCH: Appropriate affect. Alert and oriented to person, place and time. SKIN: Good skin turgor. Well perfused. Diffuse macular papular rash. ASSESSMENT: 1. Morbid obesity due to excess calories. 2. Body mass index of 47.8 to 45.6. 3. Osteoarthritis of the knees. 4. Osteoarthritis of the hips. 5. Osteoarthritis of the lower back. 6. Obstructive sleep apnea. 7. Hypertensive heart disease. 8. Status post sleeve gasterctomy. 9. Rash. PLAN: 1. Recommend additional Decadron 20 mg IM at her primary care provider. 2. Continue with liquid diet. 3. Cool compress along the skin. 4. Non-dye detergent and soaps recommend. 5. Follow-up in April 2018. Objective - Vital Signs Vital signs: Vital Signs Temp 97.9 F 03/17/18 16:54 Pulse 72 03/17/18 16:54 Resp BP 131/82 03/17/18 16:54 Pulse Ox Intake & Output 03/16/18 03/17/18 03/17/18 18:59 06:59 18:59 Weight 105.687 kg
== END | disposition home or self-care (01) ==
LOC: BARWHC3 16:04
PROVIDERS: ATTEND Surgery Plastic and Reconstructive Surgery
DX: Z09 Encounter for follow-up examination after completed treatment for conditions other than malignant neoplasm (principal); E66.01 Morbid (severe) obesity due to excess calories; R21 Rash and other nonspecific skin eruption; M17.0 Bilateral primary osteoarthritis of knee; M16.0 Bilateral primary osteoarthritis of hip; M47.9 Spondylosis, unspecified; G47.33 Obstructive sleep apnea (adult) (pediatric); I11.9 Hypertensive heart disease without heart failure; Z68.42 Body mass index [BMI] 45.0-49.9, adult; Z98.84 Bariatric surgery status
CPT/HCPCS: 97803; 99211

== ENCOUNTER → 2018-04-14 | Outpatient (CLI) | payer BC ==
--- NOTE | 2018-04-14 17:03 | P.PN ---
Subjective Progress Note Date: 04/14/18 HPI: Presents 1 month following sleeve gastrectomy. No GERD. She reports fatigue. Getting over 80+ grams protein daily. PLAN: 1. Labs obtained today. 2. Follow-up in [place]
[2018-04-14 17:25] LABS: HCT 37.9 % (34.0-46.0); HGB 12.8 gm/dL (11.4-16.0); MCH 29.6 pg (25.0-35.0); MCHC 33.9 g/dL (31.0-37.0); MCV 87.4 fL (80.0-100.0); Mean Platelet Volume 7.1; Platelet Count 212 k/uL (150-450); RBC 4.33 m/uL (3.80-5.40); RDW 15.8 % (11.5-15.5); WBC 5.2 k/uL (3.8-10.6)
[2018-04-14 17:32] LABS: INR 1.1 (<1.2); Partial Thromboplastin Time 23.4 sec (22.0-30.0); Prothrombin Time 10.8 sec (9.0-12.0)
[2018-04-14 18:03] LABS: ALT 34 U/L (9-52); AST 18 U/L (14-36); Alkaline Phosphatase 40 U/L (38-126); Anion Gap 16 mmol/L; Blood Urea Nitrogen 15 mg/dL (7-17); Calcium 9.2 mg/dL (8.4-10.2); Carbon Dioxide 22 mmol/L (22-30); Chloride 105 mmol/L (98-107); Cholesterol 127 mg/dL (<200); Glucose 85 mg/dL (74-99); HDL Cholesterol 41 mg/dL (40-60); LDL Cholesterol,Calculated 61 mg/dL (0-99); Magnesium 1.8 mg/dL (1.6-2.3); Phosphorus 3.3 mg/dL (2.5-4.5); Potassium 3.7 mmol/L (3.5-5.1); Sodium 143 mmol/L (137-145); Total Bilirubin 0.3 mg/dL (0.2-1.3); Total Protein 6.3 g/dL (6.3-8.2); Triglycerides 125 mg/dL (<150)
[2018-04-15 02:25] LABS: Iron Saturation 13.93 (12.00-45.00)
[2018-04-15 02:34] LABS: Vitamin D 25 Hydroxy 20.7 ng/mL (30.0-100.0)
[2018-04-15 03:57] LABS: Hemoglobin A1C 5.3 % (4.0-6.0)
[2018-04-15 10:15] VITALS: BMI 41.5
[2018-04-15 11:55] LABS: Folate, Serum 13.6 ng/mL
[2018-04-15 14:23] LABS: Zinc, Serum 80 ug/dL (60-130)
[2018-04-16 05:34] LABS: Vitamin B1 57 ug/L (38-122)
[2018-04-16 05:44] LABS: Vitamin A 30 ug/dL (38-106)
[2018-04-17 10:32] LABS: Selenium 111 mcg/L (63-160)
== END | disposition home or self-care (01) ==
LOC: BARWHC3 16:38
PROVIDERS: ATTEND Surgery Plastic and Reconstructive Surgery
DX: Z48.815 Encounter for surgical aftercare following surgery on the digestive system (principal); R53.83 Other fatigue; E66.01 Morbid (severe) obesity due to excess calories; E21.1 Secondary hyperparathyroidism, not elsewhere classified; E89.1 Postprocedural hypoinsulinemia; D50.9 Iron deficiency anemia, unspecified; K90.9 Intestinal malabsorption, unspecified; E55.9 Vitamin D deficiency, unspecified; K74.1 Hepatic sclerosis; N19 Unspecified kidney failure; K50.90 Crohn's disease, unspecified, without complications; Z71.3 Dietary counseling and surveillance; Z68.41 Body mass index [BMI] 40.0-44.9, adult; Z98.84 Bariatric surgery status
CPT/HCPCS: 36415; 80053; 80061; 82306; 82525; 82607; 82728; 82746; 83036; 83540; 83550; 83735; 83970; 84100; 84134; 84255; 84425; 84443; 84590; 84630; 85027; 85610; 85730; 97803; 99211

== ENCOUNTER → 2018-07-15 | Outpatient (CLI) | payer BC ==
[2018-07-15 10:24] LABS: HGB 13.3 gm/dL (11.4-16.0); MCH 30.2 pg (25.0-35.0); MCHC 33.3 g/dL (31.0-37.0); MCV 90.7 fL (80.0-100.0); Mean Platelet Volume 7.2; Platelet Count 195 k/uL (150-450); RBC 4.41 m/uL (3.80-5.40); RDW 12.8 % (11.5-15.5); WBC 5.6 k/uL (3.8-10.6)
[2018-07-15 10:51] LABS: ALT 27 U/L (9-52); AST 17 U/L (14-36); Albumin 3.7 g/dL (3.5-5.0); Alkaline Phosphatase 41 U/L (38-126); Anion Gap 6 mmol/L; Blood Urea Nitrogen 11 mg/dL (7-17); Calcium 9.1 mg/dL (8.4-10.2); Carbon Dioxide 25 mmol/L (22-30); Chloride 109 mmol/L (98-107); Cholesterol 141 mg/dL (<200); Glucose 88 mg/dL (74-99); HDL Cholesterol 44 mg/dL (40-60); LDL Cholesterol,Calculated 69 mg/dL (0-99); Magnesium 1.9 mg/dL (1.6-2.3); Phosphorus 3.1 mg/dL (2.5-4.5); Potassium 4.4 mmol/L (3.5-5.1); Sodium 140 mmol/L (137-145); Total Bilirubin 0.3 mg/dL (0.2-1.3); Total Protein 6.2 g/dL (6.3-8.2); Triglycerides 139 mg/dL (<150)
[2018-07-15 11:01] LABS: INR 1.1 (<1.2); Partial Thromboplastin Time 23.6 sec (22.0-30.0); Prothrombin Time 10.4 sec (9.0-12.0)
[2018-07-15 17:19] LABS: Iron Saturation 22.22 (12.00-45.00)
[2018-07-15 17:31] LABS: Folate, Serum >24.0 ng/mL
[2018-07-15 17:47] LABS: Parathyroid Hormone Intact 29.4 pg/mL (14.0-72.0)
[2018-07-15 19:50] LABS: Hemoglobin A1C 5.5 % (4.0-6.0)
[2018-07-16 13:41] LABS: Zinc, Serum 79 ug/dL (60-130)
== END | disposition home or self-care (01) ==
LOC: LABWHC1 09:10
PROVIDERS: ATTEND Surgery Plastic and Reconstructive Surgery
DX: E55.9 Vitamin D deficiency, unspecified (principal); E66.01 Morbid (severe) obesity due to excess calories; E21.1 Secondary hyperparathyroidism, not elsewhere classified; K74.1 Hepatic sclerosis; E89.1 Postprocedural hypoinsulinemia; D50.8 Other iron deficiency anemias; K90.89 Other intestinal malabsorption; T56.894A Toxic effect of other metals, undetermined, initial encounter; K90.9 Intestinal malabsorption, unspecified
CPT/HCPCS: 36415; 80053; 80061; 82306; 82525; 82607; 82728; 82746; 83036; 83540; 83550; 83735; 83970; 84100; 84134; 84255; 84425; 84443; 84590; 84630; 85027; 85610; 85730

== ENCOUNTER → 2018-10-27 | Outpatient (CLI) | payer BC ==
--- NOTE | 2018-10-27 15:09 | P.PN ---
Subjective Progress Note Date: 10/27/18 HPI: She has no problems with GERD. She troubles with her thyroid. She is switching to regular synthroid as she saw her utility gelatin maker. ABDOMEN: Unremarkable PLAN: 1. Labs is pending. 2. She needs protein intake adjustments. 3. TSH was off and will need adjustment
[2018-10-27 15:23] VITALS: BP 134/80; PULSE 83; TEMP 97.5; BMI 37.5
== END | disposition home or self-care (01) ==
LOC: BARWHC3 14:14
PROVIDERS: ATTEND Surgery Plastic and Reconstructive Surgery
DX: E66.01 Morbid (severe) obesity due to excess calories (principal); Z68.37 Body mass index [BMI] 37.0-37.9, adult
CPT/HCPCS: 97803; 99211